=== PATIENT | female | born 1940 | race Caucasian/White ===

== ENCOUNTER 2017-02-15 09:11 | Day surgery (SDC) | payer OTHER ==
--- NOTE | 2017-02-14 16:06 | PREOPHP ---
DATE OF ADMISSION: 02/15/2017 HISTORY OF PRESENT ILLNESS: This 76-year-old patient is admitted for elective cataract surgery of t he left eye. The patient has noted decreased vision in that eye for the past 4 years and 1 year ago underwent cataract surgery of the right eye with good visual result. The patient has a systemic hi story of insulin-dependent diabetes mellitus for the past 25 years as well as systemic hypertension. CURRENT MEDICATIONS: Include: 1. Insulin. 2. Metformin. 3. Amlodipine. 4. Gabapentin. 5. Atorvastatin. 6. Benazepril 7. Trazodone. ALLERGIES: THERE ARE NO KNOWN ALLERGIES. PHYSICAL EXAMINATION: The visual acuity best corrected is 20/50 in the right eye and hand motion vi nazia in the left eye. Slit lamp examination reveals a posterior chamber intraocular lens in appropr iate position in the right eye and an anterior cortical nuclear sclerotic and dense posterior subcap sular cataract in the left eye. Applanation tonometry is 21 mmHg in both eyes. Examination of the retina is within normal limits without evidence of diabetic retinopathy. DIAGNOSIS: Near mature cataract, left eye. PLAN: Cataract extraction with lens implant, left eye. The risks and alternatives to the surgery h ave been discussed with the patient as well as the hope for improvement of visual acuity leading to a greater ability to perform activities of daily living. The patient understands this and agrees to proceed with surgery. Dictated By: ANT WINTERS/REIJ Conf#: [id number] DID#: [id number]
[2017-02-15] VITALS (9 sets, daily range): BP systolic 140–171; BP diastolic 70–82; PULSE 84–96; RESP 16–26; Ht 165.1 cm; Wt 73.7 kg
[~2017-02-15] VITALS: Ht 165.1 cm; Wt 73.7 kg
[2017-02-15] MEDS ORDERED: GABA100C14 PO (09:37)
[2017-02-15] MEDS ORDERED: AMLO2.5T78 PO (09:38)
[2017-02-15] MEDS ORDERED: BENA40TA41 PO (09:38)
[2017-02-15] MEDS ORDERED: METF1000 PO (09:40)
[2017-02-15] MEDS ORDERED: ATOR20TA38 PO (09:40)
[2017-02-15] MEDS ORDERED: BASAGLAR IJ (09:42)
[2017-02-15] MEDS ORDERED: TROPICAMIDE 1% 2 ML OPH OPER SCH (10:00)
[2017-02-15] MEDS ORDERED: CIPROFLOXACIN 0.3% 2.5 ML OPH OPER SCH (10:00)
[2017-02-15] MEDS ORDERED: CYCLOPENTOLATE/PHENYLEPH 2 ML OPH OPER SCH (10:00)
[2017-02-15] MEDS ORDERED: DICLOFENAC 0.1% 2.5 ML OPH OPER SCH (10:00)
[2017-02-15] MEDS ORDERED: CEFAZOLIN 1 GM INJ ONE (11:02)
[2017-02-15] MEDS ORDERED: LIDOCAINE 4% (MPF) 5 ML INJ ONE (11:02)
[2017-02-15] MEDS ORDERED: EPINEPHrine 0.1 MG/ML SYG ONE (11:02)
[2017-02-15] MEDS ORDERED: GENTAMICIN 80 MG INJ ONE (11:02)
[2017-02-15] MEDS ORDERED: DEXAMETHASONE 4 MG/ML 1 ML INJ ONE (11:02)
[2017-02-15] MEDS ORDERED: HYALURONATE/CHONDROITIN 1ML OPH INJ ONE (11:03)
[2017-02-15] MEDS ORDERED: EPINEPHrine 1 MG INJ ONE (11:03)
[2017-02-15] MEDS ORDERED: CARBACHOL 0.01% 1.5 ML OPH INJ IO ONE (12:15)
[2017-02-15] MEDS ORDERED: HYALURONATE/CHONDROITIN 1ML OPH INJ IO ONE (12:15)
[2017-02-15] MEDS ORDERED: CEFAZOLIN 1 GM INJ INJ ONE (12:15)
[2017-02-15] MEDS ORDERED: DEXAMETHASONE 4 MG/ML 1 ML INJ INJ ONE (12:15)
[2017-02-15] MEDS ORDERED: PROPOFOL 20 ML ONE (12:21)
[2017-02-15] MEDS ORDERED: MIDAZOLAM 1 MG/ML 2 ML INJ ONE (12:41)
--- NOTE | 2017-02-15 13:31 | OPR ---
DATE OF OPERATION: 02/15/2017 PREOPERATIVE DIAGNOSIS: Cataract, left eye. POSTOPERATIVE DIAGNOSIS: Cataract, left eye. SURGEON: Ant Tolbert MD [employer] INSTRUCTOR: ANESTHESIA: Local standby. ANESTHESIOLOGIST: Dr. Oseguera OPERATION: Cataract extraction with lens implant, left eye. PROCEDURE: The patient was brought to the operating room and placed on the table with an IV in plac e and the patient attached to an child monitor. Oxygen was given via face mask. After some intravenous sedation was administered, local anesthesia was given using Xylocaine 2% with epinephrine, mixed with Marcaine 0.5%. This was given in a lid block and retrobulbar injection. The patient was then prepped and draped in the usual sterile manner. A wire lid speculum was inserted between the lids of the left eye. A Superblade was used to enter th e anterior chamber at the corneoscleral limbus at the 10:30 o'clock position. A separate incision wa s made using a 3.0-mm keratome which entered the corneoscleral junction at the 12 o'clock position. Through this 3-mm opening, an irrigating cystitome was introduced into the anterior chamber. The kellie mber was filled with Viscoat and an anterior capsulotomy was performed. Balanced salt solution was t hen used for hydrodissection of the lens. A phacoemulsification handpiece was then brought into the field and introduced into the anterior chamber. The lens nucleus was emulsified using a deep groove and cracking the nucleus into quadrants. Following this, each quadrant was aspirated and emulsified at the pupillary margin. After this was completed, the irrigation/aspiration handpiece was brought to the field, introduced i nto the posterior chamber, and the lens cortical material was removed. When this was completed, aria tional Viscoat was injected into the anterior and posterior chambers. The 3-mm opening had its internal lips enlarged, and then the posterior chamber intraocular lens colton suring 22.5 diopters (Bausch and 19pay [id number]) was then injected into the posterior chamb er using the lens injector system. After the leading haptic was introduced into the capsular bag and the lens optic was present in the center of the eye, the injector was removed and the trailing hapt ic was grasped with non-toothed forceps and introduced into the capsular fold superiorly. A Sinskey hook was then used to rotate the intraocular lens so that the lips were oriented in the horizontal m eridian. One 10-0 nylon suture was placed across the wound. Prior to tying, the irrigation/aspiration handpiece was reintroduced into the anterior chamber to re move the Viscoat. Miochol was instilled to constrict the pupil, and then the 10-0 nylon suture was t ied. The ends were cut short and then the knot was buried. Then, 0.5 mL of dexamethasone and 0.5 mL of Ancef were injected into the sub-Tenon space in the infe rior fornix. Ciloxan drops were then placed on the surface of the eye. The speculum was removed and a patch was applied. The patient then left the operating room in satisfactory condition. Dictated By: ANT WINTERS/REJI Conf#: [id number] DID#: [id number]
== END 2017-02-15 14:40 | disposition home or self-care (01) ==
LOC: SDS 09:11
PROVIDERS: ATTEND Ophthalmology
DX: H25.12 Age-related nuclear cataract, left eye (principal); E11.9 Type 2 diabetes mellitus without complications; Z79.4 Long term (current) use of insulin; I10 Essential (primary) hypertension; E78.5 Hyperlipidemia, unspecified
CPT/HCPCS: 66984; 82962; J0171; J0690; J1100; J1580; J2250; V2632; Z7512; Z7610